=== PATIENT | female | born 1990 | race Caucasian/White ===

== ENCOUNTER 2020-10-19 03:11 | Emergency (ER) | payer OTHER ==
[~2020-10-19] VITALS: Ht 162.6 cm; Wt 76.2 kg
[2020-10-19] MEDS ORDERED: DOXYCYCLINE 10100 MG PO (04:31)
[2020-10-19 04:48] VITALS: BP 110/70
== END 2020-10-19 04:50 | disposition home or self-care (01) ==
LOC: ER 03:11
DX: S61.212A Laceration without foreign body of right middle finger without damage to nail, initial encounter (principal); W26.0XXA Contact with knife, initial encounter; Y93.89 Activity, other specified; Y92.090 Kitchen in other non-institutional residence as the place of occurrence of the external cause; Y99.9 Unspecified external cause status